=== PATIENT | female | born 1935 | race Two or more races ===

== ENCOUNTER 2025-02-19 01:56 | Emergency (ER) | payer OTHER ==
[~2025-02-19] VITALS: Ht 152.4 cm; Wt 81.6 kg
[2025-02-19] MEDS ORDERED: PROMETHAZINE HCL 50 MG/ML AMPUL IM STA (02:46)
[2025-02-19] MEDS ORDERED: KETOROLAC TROMETHAMINE 30 MG VIAL IV STA (02:47)
[2025-02-19] MEDS ORDERED: 0.9 % SODIUM CHLORIDE 1,000 ML IV ONE (03:00)
[2025-02-19 03:40] LABS: BASO % 0.4 % (0.1-1.2); EOS # 0.12 (0.04-0.54); EOS % 1.2 % (0.7-7.0); LYMPH # 0.97 (1.18-3.74); LYMPH % 10.1 % (19.3-53.1); MEAN PLATELET VOLUME 9.10 fl (9.4-12.4); MONO # 0.49 (0.24-0.82); MONO % 5.1 % (4.7-12.5); NEUT # 7.96 (1.56-6.13); NEUT % 82.9 % (34.0-71.1); RED CELL DISTRIBUTION WIDTH 15.1 % (11.6-14.4)
[2025-02-19 04:10] LABS: INR 1.17
[2025-02-19 04:15] LABS: ALT/SGPT 20.0 U/L (12-78); AST/SGOT 16.0 U/L (15-37); BILIRUBIN TOTAL 0.54 mg/dL (0.3-1.2); BILIRUBIN,CONJUGATED 0.16 mg/dL (0.0-0.2); BUN CREA RATIO 38.0 (7.0-25.0); CREATININE SERUM 0.58 mg/dL (0.55-1.02); GFR 98.34; GLOBULINA 3.7 G/DL (2.4-3.5); GLUCOSE FASTING 144.0 mg/dL (65-100); OSMOLALITY SERUM 283.0 MOSM/KG (275-295)
[2025-02-19] MEDS ORDERED: CEPHALEXIN500 MG PO (05:20)
[2025-02-19] MEDS ORDERED: LEVSIN/SL0.125 MG SL (05:20)
[2025-02-19] MEDS ORDERED: PROTONIX40 MG PO (05:20)
== END 2025-02-19 05:32 ==
LOC: ER 01:56
PROVIDERS: General Practice
DX: R10.11 Right upper quadrant pain (principal); K80.20 Calculus of gallbladder without cholecystitis without obstruction; R10.9 Unspecified abdominal pain; R11.10 Vomiting, unspecified; I10 Essential (primary) hypertension; Z88.2 Allergy status to sulfonamides
CPT/HCPCS: 36415; 76700; 93005; 96365; 96366; 96372; 99284; J3490 ×2; J7030